=== PATIENT | female | born 1965 | race Asian ===

== ENCOUNTER 2017-11-19 16:51 | Emergency (ER) | payer BC ==
[2017-11-19 17:02] VITALS: BMI 22.6
[2017-11-19] MEDS ORDERED: POTASSIUM CHLORIDE TABS 20 MEQ TABLET.ER (FP) PO ONE ×2 (17:29→17:34)
--- NOTE | 2017-11-19 17:34 | PDOC ---
Attending Attestation - Resident Resident Name: Munir Peterson - ED Attending Attestation I have performed the following: I have examined & evaluated the patient, The case was reviewed & discussed with the resident, I agree w/resident's findings & plan, Exceptions are as noted - HPI HPI: 11/19/17 17:31 51 yo female visiting the area from [place] who was referred from [facility] after a CT SCAN of abd/pelvis showed thickened gallbladder,dilated CBD and hypokelemia. She has had diarrhea for 5 days, denies any sick contacts 11/19/17 17:34 - Physicial Exam PE: 11/19/17 17:35 wnwd 51 yo female e h/o loose watery stools for 5 days throat no exudates,no erythema head ncat neck supple lungs cta b/l abd mild epigastric pain,no rebound,no guarding extremities no deformities,motor strength 5/5 skin warm,dry,no evidence of vesicles,no erythema psych appropriate neuro [id number], ambulatory, no gross focal neuro deficits 11/19/17 22:00 - Medical Decision Making 11/19/17 22:02 abd US shows gallstones with mildly dilated CBD but no evidence of acute cholecystitis -pt afebrile -pt has been symptoms free while in ER -k=3.8 -labs unremarkable IMP diarrhea/gallstnes discharged home to followup with her PCP
--- NOTE | 2017-11-19 17:41 | PDOC ---
History of Present Illness - General Chief Complaint: Diarrhea Stated Complaint: DIARRHEA Time Seen by Provider: 11/19/17 17:12 - History of Present Illness Initial Comments: 11/19/17 17:34 The patient is a 51 year old female with no significant PMH who presents for evaluation from [facility] of abdominal pain and diarrhea. She reports that she is visiting from [facility] [place] and has been having 5 days of diarrhea and generalized abdominal pain. A CT abdomen was done at [facility] demonstrating concerns for acute cholecystitis prompting their presentation to the ED today. She reports that her abdominal pain is crampy in nature and generalized. She denies fevers, chills, SOB, chest pain, vomiting, or changes with urination. Past History - Past Medical History Allergies/Adverse Reactions: Allergies Allergy/AdvReac Type Severity Reaction Status Date / Time No Known Allergies Allergy Verified 11/19/17 17:02 Home Medications: Ambulatory Orders Loperamide HCl [Imodium -] 2 mg PO BID 11/19/17 COPD: No - Suicide/Smoking/Psychosocial Hx Smoking History: Never smoked Hx Alcohol Use: No Drug/Substance Use Hx: No Substance Use Type: None Review of Systems - Review of Systems Comments:: 11/19/17 17:37 Constitutional: No fevers, chills, fatigue, malaise HEENT: No Rhinorrhea, nasal congestion, visual changes Cardiovascular: No chest pain, syncope, palpitations, lightheadedness Respiratory: No Cough, SOB, Hemoptysis, Gastrointestinal: Generalized abdominal pain, diarrhea. No Nausea, Vomiting, Constipation, Melena Genitourinary: No Dysuria, Frequency, Urgency, Hesitancy, Hematuria, Flank pain Musculoskeletal: No Myalgia, arthralgia Skin: No rashes, bruising, pallor Neurologic: No Headache, Dizziness, Numbness, Weakness, or Tingling Psychiatric: No Hallucinations. No SI or HI *Physical Exam - Vital Signs Last Vital Signs Temp Pulse Resp BP Pulse Ox 98.2 F 92 H 20 120/71 98 11/19/17 16:58 11/19/17 16:58 11/19/17 16:58 11/19/17 16:58 11/19/17 16:58 - Physical Exam Comments: 11/19/17 17:42 General Appearance: Nourished. No Apparent Distress HEENT: EOMI, GIOVANNY. No Pharyngeal Erythema, Tonsillar Exudate, Tonsillar Erythema Neck: No Cervical Lymphadenopathy Respiratory/Chest: Lungs Clear, Normal Breath Sounds. No Crackles, Rales, Rhonchi, Wheezing Cardiovascular: Regular Rhythm, Regular Rate. No Murmur, Gallops, Rubs Gastrointestinal/Abdominal: Normal Bowel Sounds, Soft. Mild diffuse tenderness to deep palpation. Negative Shah's sign. No Guarding, Rebound, Musculoskeletal: No CVA Tenderness Extremity: Normal Capillary Refill Integumentary: Normal Color, Dry, Warm Neurologic: Fully Oriented, Alert, Normal Mood/Affect, Normal Response, ED Treatment Course - LABORATORY CBC & Chemistry Diagram: 11/19/17 20:05 11/19/17 20:05 - RADIOLOGY Radiology Studies Ordered: Category Date Time Status GALLBLADDER US [US] Stat Ultrasound 11/19/17 17:28 Ordered Medical Decision Making - Medical Decision Making 11/19/17 17:43 The patient is a 51 year old female with no significant PMH who presents for evaluation from [facility] of abdominal pain and diarrhea. Differential includes but is not limited to: Cholecystitis, Gastroenteritis, traveler's diarrhea, infectious, metabolic derangement. Given the patient's physical exam with a relatively non-tender abdomen, it is likely the patient's symptoms are due to traveler's diarrhea. However given her ct report from [facility], we will obtain a gallbladder US to evaluate further. We will also obtain a cbc, cmp, lipse. We will continue to monitor and reassess. *DC/Admit/Observation/Transfer Diagnosis at time of Disposition: Gallstones - Discharge Dispostion Disposition: HOME Condition at time of disposition: Good - Referrals Referrals: STAFF,NOT ON [Primary Care Provider] - - Patient Instructions Printed Discharge Instructions: DI for Gallstones Additional Instructions: Please return if you have any new, worsening or concerning symptoms. Please follow up with your primary care physician when you return to [place]. - Post Discharge Activity
--- NOTE | 2017-11-19 19:34 | PDOC ---
*Physical Exam - Vital Signs Last Vital Signs Temp Pulse Resp BP Pulse Ox 98.2 F 92 H 20 120/71 98 11/19/17 16:58 11/19/17 16:58 11/19/17 16:58 11/19/17 16:58 11/19/17 16:58 - Physical Exam Comments: 11/19/17 21:12 GENERAL: Awake, alert, and fully oriented, in no acute distress HEAD: No signs of trauma, normocephalic, atraumatic EYES: PERRLA, EOMI, sclera anicteric, conjunctiva clear ENT: Auricles normal inspection, hearing grossly normal, nares patent, oropharynx clear without exudates. Moist mucosa LUNGS: No distress, speaks full sentences, clear to auscultation bilaterally HEART: Regular rate and rhythm, normal S1 and S2, no murmurs, rubs or gallops, peripheral pulses normal and equal bilaterally. NEUROLOGICAL: Cranial nerves II through XII grossly intact. Normal speech, no focal sensorimotor deficits SKIN: Warm, Dry, normal turgor, no rashes or lesions noted. ED Treatment Course - LABORATORY CBC & Chemistry Diagram: 11/19/17 20:05 11/19/17 20:05 - Medications Given in the ED: ED Medications Discontinued Medications Generic Name Dose Route Start Last Admin Trade Name Freq PRN Reason Stop Dose Admin Potassium Chloride 40 meq 11/19/17 17:29 11/19/17 17:37 K-Dur - PO 11/19/17 17:30 40 meq ONCE ONE Administration Medical Decision Making - Medical Decision Making 11/19/17 21:[address] Peterson. Patient is 51F here today coming from urgent care with possible cholecystitis. Presenting from urgent care complaining of diarrhea and abdominal pain for the last 5 days. Labs significant for hypokalemia to 2.9. CT scan showed gallstones and dilated cbd. Patient states she had another loose stool on my reassessment. Ultrasound wet read shows several gallstones in gallbladder, pending official read. 11/19/17 22:03 US shows multiple stones with some distention and a mildly dilated CBD to 9mm. No definite cholecystitis. Patient is not complaining of RUQ pain, says her abdominal pain is better and feels gassy. Will discharge with instructions to follow up with her care in [place] and return precautions. *DC/Admit/Observation/Transfer Diagnosis at time of Disposition: Gallstones - Discharge Dispostion Disposition: HOME Condition at time of disposition: Good Admit: No - Referrals Referrals: STAFF,NOT ON [Primary Care Provider] - - Patient Instructions Printed Discharge Instructions: DI for Gallstones Additional Instructions: Please return if you have any new, worsening or concerning symptoms. Please follow up with your primary care physician when you return to [place]. - Post Discharge Activity
[2017-11-19 20:08] LABS: BASO % 0.3 % (0-2.0); EOS % 3.6 % (0-4.5); HEMATOCRIT 37.1 % (32.4-45.2); HEMOGLOBIN 12.5 GM/dL (10.7-15.3); LYMPH % 21.7 % (8-40); MCH 30.5 pg (25.7-33.7); MCHC 33.6 g/dl (32.0-36.0); MEAN CELL VOLUME 90.9 fl (80-96); MEAN PLT VOLUME 7.5 fl (7.5-11.1); MONO % 9.8 % (3.8-10.2); NEUT % 64.6 % (42.8-82.8); PLATELET COUNT 303 K/MM3 (134-434); RBC 4.09 M/mm3 (3.60-5.2); RDW 12.9 % (11.6-15.6); WHITE BLOOD COUNT 5.3 K/mm3 (4.0-10.0)
[2017-11-19 20:43] LABS: ALBUMIN 3.4 g/dl (3.4-5.0); ALK PHOS 52 U/L (45-117); ANION GAP 5 (8-16); BILIRUBIN,TOTAL 0.5 mg/dL (0.2-1.0); BLOOD UREA NITROGEN 7 mg/dL (7-18); CALCIUM 7.9 mg/dL (8.5-10.1); CHLORIDE 106 mmol/L (98-107); CO2 28 mmol/L (21-32); CREATININE 0.7 mg/dL (0.55-1.02); GLUCOSE,RANDOM 83 mg/dL (74-106); LIPASE 116 U/L (73-393); POTASSIUM 3.8 mmol/L (3.5-5.1); SGOT/AST 10 U/L (15-37); SGPT/ALT 22 U/L (12-78); SODIUM 139 mmol/L (136-145); TOT PROT 6.9 g/dl (6.4-8.2)
[2017-11-19 22:27] VITALS: BP 112/77; PULSE 83; TEMP 98
== END 2017-11-19 22:27 | disposition home or self-care (01) ==
LOC: JER 16:51
DX: K80.20 Calculus of gallbladder without cholecystitis without obstruction (principal); E87.6 Hypokalemia
CPT/HCPCS: 36415; 76705-TC; 80053; 83690; 85025; 99282-25